=== PATIENT | female | born 1950 | race Caucasian/White ===

== ENCOUNTER 2020-05-13 07:30 | Outpatient (CLI) | payer MEDICARE, SELFPAY ==
[2020-05-13 07:40] VITALS: BMI 27.5
--- NOTE | 2020-05-13 07:58 | ECG_ITS ---
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 Interpretive Statements NAME OF STUDY: EXERCISE SESTAMIBI STRESS TEST INDICATION: Central Chest Pain Baseline blood pressure of 137/87 mm Hg, heart rate 74 beats per minute and oxygen saturation 96%. EKG showed normal sinus rhythm with possible old inferior wall myocardial infarction. Possible old anterolateral myocardial infarction. The patient exercised for 5 minutes on a standard John protocol. Patient attained a maximum heart rate of 150 beats per minute(99 % of the maximum predicted heart rate) with a blood pressure at the peak exercise of 193/87 mm Hg. The EKG at the peak exercise revealed no significant ST-T wave changes. Patient did not have any chest pain or any significant arrhythmis with the exercise. Patient developed intraprocedural shortness of breath that resolved by discharge. During the recovery phase, there were no new changes. Blood pressure at the end of the recovery phase was 172/90 mm Hg with a heart rate of 77 beats per minute and oxygen saturation 98%. CONCLUSION: 1. Normal EKG response to treadmill exercise. 2. No exercise-induced chest pain or cardiac arrhythmia. 3. Fair exercise tolerance, attained a maximum of 24.5 METs. 4. Baseline normal blood pressure with normal response to exercise. 5. Perfusion scan will be documented separately. Electronically Signed On 05-18-2020 12:10:56 CDT by Chapis Braxton M.D. [id number]
--- NOTE | 2020-05-13 07:59 | NMCV_ITS ---
NM shmuel perf SPECT r/s* [id number] Edwina Puentes Age: 69 Gender: F : 1950 Exam Date: 05/13/2020 08:27 Ordering Phys: Vidya Wallace MD Technologist: ANDRES Restrepo Exam Location: [facility] Indications: CENTRAL CHEST PAIN STRESS TEST Please see separate stress test report in [facility] for full findings IMAGE PROTOCOL Rest/Stress 1 Exercise Day Radiopharmaceutical Dose (mCi) Administration Site Administered by Rest: Tc-99m 10.9 IV ANDRES Dean Sestamibi Stress:Tc-99m 32.6 IV ANDRES Dean Sestamibi Rest: 13-May-2020 60 Discovery 630 Stress: 13-May-2020 30 Discovery 630 Radiopharmaceutical was injected at 88 % maximum heart rate. Images obtained in supine and prone position. SPECT RESULTS Technical Quality: Excellent Raw Data Analysis: Normal Image Corrections: No attenuation or motion correction applied Summed Stress Score: 9 Summed Rest Score: 8 Summed Difference Score: 1 PERFUSION FINDINGS Medium sized perfusion abnormality of mild to moderate severity of entire inferior, mid to apical inferolateral wall on rest and supine stress images. There is nearly homogeneous tracer uptake on prone stress images. This is suggestive of attenuation artifact. FUNCTIONAL RESULTS (calculated via Gated SPECT) Stress Image LV EF (%): 77 Stress EDV (mL):60 TID: 0.8 Stress ESV (mL):14 FUNCTIONAL FINDINGS: The left ventricle is normal in size. Transient Ischemia Dilatation of 0.8. There is normal left ventricular systolic function. The left ventricular ejection fraction is normal with a value of 77%. There is hyperdynamic left ventricular wall thickening. Normal end-diastolic and end-systolic volumes. IMPRESSIONS 1. Myocardial perfusion imaging is normal. Attenuation artifact noted in entire inferior and inferolateral sinclair. 2. Overall left ventricular systolic function is normal without regional wall motion abnormalities. 3. The left ventricular ejection fraction is normal with a value of 77%. 4. No coronary ischemia based on the study. Chapis Braxton MD (Electronically Signed) Final Date: 14 May 2020 17:32 S
--- NOTE | 2020-05-13 09:43 | SUR.PREOP ---
Patient reports no pain or discomfort prior to the start of the procedure.
[2020-05-13 09:56] VITALS: BP 173/82; PULSE 73
== END 2020-05-13 07:31 | disposition home or self-care (01) ==
LOC: RAD 07:34 → CDL 07:40
PROVIDERS: PCP Family Medicine; Visit Provider Family Medicine
DX: R07.89 Other chest pain (principal)
CPT/HCPCS: 78452; 93017; A9500

== ENCOUNTER 2021-04-22 08:42 | Outpatient (CLI) | payer MEDICARE, SELFPAY ==
--- NOTE | 2021-04-22 08:51 | MM_ITS ---
WS: [id number] BILATERAL SCREENING DIGITAL MAMMOGRAM WITH CAD HISTORY: SCREENING COMPARISON: 02/11/2019 and 05/23/2017 Bilateral CC and MLO views submitted. Computer aided detection analyzed. Breast composition: There are scattered areas of fibroglandular density. No suspicious masses, microc alcifications or architectural distortion. Benign calcifications in each breast. 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 MM/[place] [id number] IMPRESSION: BI-RADS: 2-Benign FOLLOW UP: 1 Year Follow-up
== END 2021-04-22 08:43 | disposition home or self-care (01) ==
LOC: RADSHAW 08:48
PROVIDERS: PCP Family Medicine; Visit Provider Family Medicine
DX: Z12.31 Encounter for screening mammogram for malignant neoplasm of breast (principal)
CPT/HCPCS: 77067

== ENCOUNTER 2022-04-25 14:59 | Outpatient (CLI) | payer MEDICARE, SELFPAY ==
--- NOTE | 2022-04-25 15:15 | MM_ITS ---
WS: [id number] VIEWS: MLO and CC views both breasts. 3D digital tomosynthesis is also included in this exam. Comparison made with prior exam of 05/13/2009, 08/01/2012, 05/23/2017, 02/11/2019, 04/22/2021.. Findings: There was no sign of mass, architectural distortion or suspicious calcification in either breast. Fa tty MM/[place] [id number] Impression: BI-RADS: 2-Benign FOLLOW-UP: 1 Year Follow-up This mammogram was also analyzed by the Computer Aided Detection System R2 Imag e Application Development Specialist.
== END 2022-04-25 15:00 | disposition home or self-care (01) ==
LOC: RADSHAW 15:01
PROVIDERS: PCP Family Medicine; Visit Provider Family Medicine
DX: Z12.31 Encounter for screening mammogram for malignant neoplasm of breast (principal)
CPT/HCPCS: 77063; 77067

== ENCOUNTER 2022-08-23 12:25 | Outpatient (CLI) | payer MEDICARE, SELFPAY ==
--- NOTE | 2022-08-23 12:47 | MR_ITS ---
WS: [id number] MRI RIGHT SHOULDER HISTORY: PAIN OF RIGHT SHOULDER REGION COMPARISON: 09/23/2010 TECHNIQUE: Multiplanar sequences of the shoulder joint are submitted. Mild AC joint hypertrophy. Small amount of fluid along the AC ligament. Small osteophytes encroach up on the supraspinatus myotendinous insertion. Moderate size osteophyte from the distal undersurface of the acromion. Moderate subacromial impingement. Small amount of fluid in the subacromial and subdelt oid bursa. No os acromion. Biceps tendon in good position. Increased signal through the distal supraspinatus tendon, signal is just distal to the subacromial os teophyte. No tear identified. There is moderate fraying along the articular and bursal surfaces of th e distal supraspinatus tendon with no retraction. No rotator cuff tear identified. No muscle atrophy or edema. Mild narrowing of the glenohumeral joint. No labral tear. MR/MR shoulder RT wo con* [id number] IMPRESSION: 1. 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 2. Moderate subacromial impingement by a moderate size osteophyte along the di stal undersurface of the acromion. 3. Moderate tendinopathy in the distal supraspinatus tendon with fraying along the bursal and articular surfaces. No rotator cuff tendon tear.
== END 2022-08-23 12:26 | disposition home or self-care (01) ==
PROVIDERS: PCP Family Medicine; Visit Provider Family Medicine
DX: M19.011 Primary osteoarthritis, right shoulder (principal); M25.811 Other specified joint disorders, right shoulder; M25.711 Osteophyte, right shoulder; M77.8 Other enthesopathies, not elsewhere classified
CPT/HCPCS: 73221

== ENCOUNTER → 2022-08-30 09:17 | Outpatient (BNVA) | payer MEDICARE, SELFPAY | PROVIDERS: PCP Family Medicine; Visit Provider Orthopaedic Surgery | DX: M75.01 Adhesive capsulitis of right shoulder (principal) | CPT/HCPCS: 99203 ==

== ENCOUNTER 2022-09-15 05:51 | Day surgery (SDC) | payer MEDICARE, SELFPAY ==
[2022-09-15] VITALS (9 sets, daily range): BP systolic 136–154; BP diastolic 72–90; PULSE 58–76; RESP 12–16; TEMP 36.5–37.3; O2SAT 92–98
[2022-09-15 06:14] LABS: Glucose Point of Care 117 mg/dL (70-110)
[2022-09-15] MEDS: acetaminophen 500 mg Tablet 1000 MG PO (06:21)
[2022-09-15] MEDS: sodium chloride 0.9% 1,000 ML 30 ML IV (06:21)
[2022-09-15] MEDS: CELEcoxib 200 mg Capsule 400 MG PO (06:21)
--- NOTE | 2022-09-15 06:48 | W.PM.OPSUD ---
Surgery/Procedure H&P Update DATE OF PROCEDURE: September 15, 2022 DATE H&P PERFORMED: 08/30/22 H&P UPDATE INFORMATION: I have reviewed H&P completed within last 30 days PREOP DIAGNOSIS: Adhesive capsulitis right shoulder PLANNED PROCEDURE: Operation Date: 09/15/22 07:00 Proposed Procedures p right shoulder manipulation M75.1,(Right) - Cornelio Clemente MD
[2022-09-15] MEDS: dexamethasone 4 mg/mL INJ INJECTION (07:14)
--- NOTE | 2022-09-15 07:20 | PM.OP ---
Operative Report Date of procedure: September 15, 2022 Pre-op diagnosis: Preop Diagnosis Adhesive capsulitis right shoulder Post-op diagnosis: same Procedure done: Right shoulder manipulation under anesthesia, injection subacromial space Pathology: none sent Anesthesia: General Estimated blood loss (mL): 0 Findings: Preoperatively the right shoulder could be flexed to 100 degrees and externally rotated 20 degrees. She can be abducted 70 degrees. Condition: stable Disposition: PACU Procedure: After Edwina was her range of motion of both shoulders was measured with right shoulder range of motion noted above. The right shoulder was then brought into flexion after 100 degrees of flexion crepitations were felt as adhesions were broken down and the shoulder was gently brought into 160 degrees of flexion. The arm was then abducted 90 degrees in that position excellently rotated 90 degrees and internally rotated 70 degrees. The elbow was then brought to the side and arm externally rotated 60 degrees. These motions were compared to the contralateral side and noted to be identical. The right shoulder was then prepped posteriorly with ChloraPrep and the subacromial space infiltrated with 1 cc of dexamethasone and 4 cc half percent plain Marcaine. She was taken to recovery room in stable condition
--- NOTE | 2022-09-15 07:34 | P.PCN_ITS ---
PACU note Narrative: VSS, Good respiratory effort, report to VELVET STEAMER Exam: awake
--- NOTE | 2022-09-15 07:34 | PM.PACU ---
PACU note Narrative: VSS, Good respiratory effort, report to SCREEN CLEANER Exam: awake
--- NOTE | 2022-09-15 08:20 | ANES.PREANE2 ---
Pre-Anesthetic Assessment Height/Weight: Height 1.73 m Weight 81.647 kg Temp Pulse Resp BP Pulse Ox O2 Del Method O2 Flow Rate 97.8 F 71 15 141/87 92 7 09/15/22 08:08 09/15/22 08:08 09/15/22 08:08 09/15/22 08:08 09/15/22 08:08 09/15/22 08:08 09/15/22 07:45 Preop Diagnosis: Adhesive capsulitis right shoulder Operation Date: 09/15/22 07:00 Proposed Procedures p right shoulder manipulation M75.1,(Right) - Cornelio Clemente MD Familial anesthetic complications: none Was Beta Nilo taken within 24 hours: N/A Was Clonidine taken within 24 hours: N/A Last intake: Intake Last Liquid Date 09/14/22 Last Liquid Time 19:30 Last Solid Date 09/14/22 Last Solid Time 19:30 Social No alcohol and No tobacco Exam alert, oriented x 3, clear to auscultation bilaterally and regular rate & rhythm Airway Submandibular: within normal limits Cervical ROM: within normal limits Mallampati: Class II CV/HEM Hypertension Metabolic Diabetes Mellitus and Thyroid Disease Anesthetic Plan ASA status: 3 Anesthesia: General and Regional (specify below) (Right interscalene nerve blk) Medications/Allergies Home Medications Medication Instructions Recorded Confirmed Last Taken Type dulaglutide 1.5 mg/0.5 mL 1.5 mg SUBCUT DIRECTED 08/30/22 09/15/22 09/12/22 History subcutaneous pen injector (Trulicity) metformin 1,000 mg tablet 1,000 mg PO BID 08/30/22 09/15/22 09/14/22 History levothyroxine 75 mcg tablet 75 mcg PO DAILY 09/14/22 09/15/22 09/14/22 History ondansetron 4 mg disintegrating 4 mg PO PRN PRN Nausea 09/14/22 09/15/22 Unknown History tablet sitagliptin 100 mg tablet (Januvia) 100 mg PO DAILY 09/14/22 09/15/22 09/14/22 History hydrocodone 5 mg-acetaminophen 325 1 tab PO Q4H #30 tabs 09/15/22 Unknown Rx mg tablet lisinopril 5 mg tablet 5 mg PO DAILY 09/15/22 09/15/22 09/14/22 History Allergies Allergy/AdvReac Type Severity Reaction Status Date / Time No Known Allergies Allergy Verified 08/30/22 09:51 Current Medications Generic Name Dose Route Start Last Admin Trade Name Roddy PRN Reason Stop Dose Admin Sodium Chloride 1,000 mls @ 30 mls/hr 09/15/22 06:15 09/15/22 06:21 Sodium Chloride 0.9% IV 09/16/22 06:14 30 mls/hr .Q24H JUMA Administration PFSH Anesthesia Family History Other CAD (coronary artery disease) Social History Smoking and tobacco status: never smoked Data Anesthesia Cardiac Studies: Sestamibi Stress Test (Cardiology) 05/13/20 Anesthesia Procedures Nerve Block Nerve Block 1: Main Anesthesia: general anesthesia Time Out Performed: Yes Consent: requested by attending/covering physician, from patient, risks and benefits reviewed and patient agrees to proceed Nerve block location: interscalene (right) Anesthesia monitors applied: pulse oximetry, EKG, BP cuff and oxygen Nerve block position: semi sitting Anesthetic Used: ropivicaine 0.5% Amount of anesthesia used (mL): 30 Ultrasound used to: recognize landmarks and visualize and ID brachial plexus Nerve Stimulator Used?: No Interscalene/Femoral BLK: 2 stimuplex 22 g needle used for position and inplane approach Injection: neg aspiration of heme Patient Tolerated Procedure: well Complications: none
--- NOTE | 2022-09-15 15:34 | ANE.PACU2 ---
Inpatient post-anesthesia follow up: Airway intact: Yes Vital signs: Temperature 97.8 F Pulse Rate 71 Respiratory Rate 15 Blood Pressure 141/87 Pulse Oximetry 92 Oxygen Delivery Me thod Room Air Oxygen Flow Rate 7 Fraction of Inspir ed Oxygen Hydration adequate: Yes Nausea and vomiting: No Pain level: 1 Mental status: Baseline
== END 2022-09-15 08:30 | disposition home or self-care (01) ==
PROVIDERS: PCP Family Medicine; Visit Provider Orthopaedic Surgery
PROC: (CPT 20610; principal; 2022-09-15 07:00)
DX: M75.01 Adhesive capsulitis of right shoulder (principal)
CPT/HCPCS: 20610; 23700; 36416; 82962; J1100; J2704; J2795; J3010; J3490; J7030

== ENCOUNTER 2022-09-16 06:00 | Outpatient (RCR) | payer MEDICARE, SELFPAY | END 2022-09-28 16:24 | disposition home or self-care (01) | LOC: SPT 06:00 | PROVIDERS: PCP Family Medicine; Visit Provider Orthopaedic Surgery | DX: M25.611 Stiffness of right shoulder, not elsewhere classified (principal) | CPT/HCPCS: 97110; 97161 ==

== ENCOUNTER → 2022-09-28 07:56 | Outpatient (BNVA) | payer MEDICARE, SELFPAY | PROVIDERS: PCP Family Medicine; Visit Provider Nurse Practitioner Family | DX: M75.01 Adhesive capsulitis of right shoulder (principal) | CPT/HCPCS: 99213 ==

== ENCOUNTER → 2022-10-18 08:42 | Outpatient (BNVA) | payer MEDICARE, SELFPAY | PROVIDERS: PCP Family Medicine; Visit Provider Orthopaedic Surgery | DX: M75.01 Adhesive capsulitis of right shoulder (principal) | CPT/HCPCS: 99024 ==

== ENCOUNTER 2023-12-20 12:19 | Emergency (ER) | payer MEDICARE, MEDICAID, SELFPAY ==
[2023-12-20 12:21] VITALS: BP 174/91; PULSE 65; RESP 14; TEMP 36.3; O2SAT 100
--- NOTE | 2023-12-20 12:52 | XR_ITS ---
WS: [id number] Right shoulder, 3 views, 12/20/2023 Clinical Data: fall Comparison: Right shoulder, 06/01/2022 Findings: There is an impacted comminuted fracture of the right humeral head and neck. The humeral head is not dislocated from the glenoid fossa. The AC joint is intact. The adjacent right clavicle, right scapula and right ribs are normal. Impression: Impacted comminuted fracture of the right humeral head and neck.
--- NOTE | 2023-12-20 12:52 | XR_ITS ---
WS: [id number] Right arm and humerus, 2 views, 12/20/2023 Clinical Data: fall Comparison: Right shoulder, 12/20/2023 Findings: There is an impacted comminuted fracture of the right humeral head and neck. The humeral shaft is no rmal. The soft tissues are normal. Impression: Impacted comminuted fracture of right humeral head and neck.
[2023-12-20 13:02] VITALS: RESP 21
--- NOTE | 2023-12-20 13:03 | W.ED.EXTPRO ---
Documented by User: GRANT Qureshi 12/20/23 13:40 HPI - Extremity Problem General: Chief complaint: Extremity Injury, Upper Stated complaint: fall, right arm pain Time Seen by Provider: 12/20/23 12:58 History of Present Illness: 73-year-old female comes in for injury to the right upper arm. Patient tripped and fell this morning over a rug landing and injuring her right upper arm. Patient appears in moderate to severe pain. Pulses are intact to the distal part of the extremity. Sensation is intact to the distal part of the extremity. Patient has a history of diabetes mellitus. Review of Systems General: Reports: 10 or more systems reviewed and unremarkable except in HPI and below Musc: Reports: extremity pain PFS ED PFSH: Family History Other CAD (coronary artery disease) Social History Smoking and tobacco/nicotine status: never used tobacco/nicotine Physical Exam Const: COMMON NORMALS: alert HENMT: COMMON NORMALS: normocephalic HEAD & SCALP: normocephalic Neck/C-Spine: COMMON NORMALS: no meningeal signs Resp: COMMON NORMALS: normal respiratory effort and clear to auscultation bilaterally AUSCULTATION: clear to auscultation bilaterally Cardio: COMMON NORMALS: regular rate and regular rhythm RATE: regular rate RHYTHM: regular rhythm GI: COMMON NORMALS: Soft to palpation PALPATION: Yes Soft to palpation and No Tenderness to palpation present (GI) : COMMON NORMALS: Yes no CVA tenderness BLADDER/KIDNEY EXAM: Yes no CVA tenderness Back/Pelvis: COMMON NORMALS: no CVA tenderness Extremity: RIGHT UPPER EXTREMITY: Yes shoulder joint (Guarded to touch, proximal swelling, no obvious deformity) and Yes upper arm (Proximal tenderness) Neuro: SENSORIUM/ORIENTATION: Yes alert MENINGEAL SIGNS: Yes no meningeal signs Skin: COMMON NORMALS: turgor normal GENERAL SKIN EXAM: turgor normal Course Vital Signs: Vital signs: Vital Signs Temperature 97.4 F L 12/20/23 12:21 Pulse Rate 72 12/20/23 13:41 Respiratory Rate 21 H 12/20/23 13:10 Blood Pressure 126/72 12/20/23 13:41 Pulse Oximetry 96 12/20/23 13:41 Oxygen Delivery Me thod Room Air 12/20/23 12:21 MDM - Extremity (Nontraumatic) Medical Decision Making Patient comes in today for evaluation of injury to the right shoulder. On exam patient has pain to the proximal humerus. Patient has some mild swelling noted. Patient is very guarded with any movement. Distal pulses and sensation are intact. No other injuries are noted. Chest wall is nontender. Abdomen soft nontender. No visible injuries to the scalp. No tenderness along the spine. Patient takes no anticoagulants or antiplatelet agents. Differential diagnosis includes dislocation, fracture, contusion. X-ray notes impacted fracture to the proximal humerus. There is comminuted abnormality to the humeral head. Reviewed exam with patient with recommendations for sling use and follow-up. Reviewed with Dr. Kothari who agreed to plan. All radiology interpretation(s) finalized by discharge Discharge Plan Discharge Patient Disposition: Home Clinical Impression: Fracture of humerus Qualifiers: Encounter type: initial encounter Humerus Location: proximal Fracture type: closed Fracture morphology: unspecified fracture morphology Laterality: right Qualified Code(s): S42.201A - Unspecified fracture of upper end of right humerus, initial encounter for closed fracture Condition: Stable Prescriptions: Continued hydrocodone-acetaminophen 5-325 mg tablet 1 tab PO Q4H Qty: 30 0RF No Action Trulicity 1.5 mg/0.5 mL pen injector 1.5 mg SUBCUT DIRECTED Rx Instructions: on mondays metformin 1,000 mg tablet 1,000 mg PO BID levothyroxine 75 mcg tablet 75 mcg PO DAILY ondansetron 4 mg tablet,disintegrating 4 mg PO PRN PRN (Reason: Nausea) Januvia 100 mg tablet 100 mg PO DAILY lisinopril 5 mg Tablet 5 mg PO DAILY Discharge Orders: Discharge ED (Routine); Ordered 12/20/23 Ordered By: Mitul Amador Referrals: Vidya Wallace MD [Primary Care Provider] - Discharge Diet: Usual diet Discharge Activity: Increase activity as tolerated Patient Instructions: Arm Fracture in Adults (ED), Opioid Safety, Pain Management Activity Restrictions/Additional Instructions: Follow-up with orthopedics in 1 week. Use sling for protection of fracture. Use medication as needed for pain. Drink plenty of water and fluids. You may need to use a stool softener if using hydrocodone routinely. You can use Tylenol or ibuprofen to help control pain. Use ice or heat for further pain relief. Return to ED for new concerns. Coding Level of Care Code ED Learning Operations Specialist for Kateryna Borja Documented by User: Piyush Kothari DO 12/22/23 06:58 HPI - Extremity Problem General: Chief complaint: Extremity Injury, Upper Stated complaint: fall, right arm pain Time Seen by Provider: 12/20/23 12:58 [facility] ED PFSH: Family History Other CAD (coronary artery disease) Social History Smoking and tobacco/nicotine status: never used tobacco/nicotine Course Vital Signs: Vital signs: Vital Signs Temperature 97.4 F L 12/20/23 12:21 Pulse Rate 72 12/20/23 13:41 Respiratory Rate 21 H 12/20/23 13:10 Blood Pressure 126/72 12/20/23 13:41 Pulse Oximetry 96 12/20/23 13:41 Oxygen Delivery Me thod Room Air 12/20/23 12:21 MDM - Extremity (Nontraumatic) Medical Decision Making Patient comes in today for evaluation of injury to the right shoulder. On exam patient has pain to the proximal humerus. Patient has some mild swelling noted. Patient is very guarded with any movement. Distal pulses and sensation are intact. No other injuries are noted. Chest wall is nontender. Abdomen soft nontender. No visible injuries to the scalp. No tenderness along the spine. Patient takes no anticoagulants or antiplatelet agents. Differential diagnosis includes dislocation, fracture, contusion. X-ray notes impacted fracture to the proximal humerus. There is comminuted abnormality to the humeral head. Reviewed exam with patient with recommendations for sling use and follow-up. Reviewed with Dr. Kothari who agreed to plan. Chart reviewed and patient discussed with midlevel. Agree with assessment and plan. Discharge Plan Discharge Patient Disposition: Home Clinical Impression: Fracture of humerus Qualifiers: Encounter type: initial encounter Humerus Location: proximal Fracture type: closed Fracture morphology: unspecified fracture morphology Laterality: right Qualified Code(s): S42.201A - Unspecified fracture of upper end of right humerus, initial encounter for closed fracture Condition: Stable Prescriptions: Continued hydrocodone-acetaminophen 5-325 mg tablet 1 tab PO Q4H Qty: 30 0RF No Action Trulicity 1.5 mg/0.5 mL pen injector 1.5 mg SUBCUT DIRECTED Rx Instructions: on mondays metformin 1,000 mg tablet 1,000 mg PO BID levothyroxine 75 mcg tablet 75 mcg PO DAILY ondansetron 4 mg tablet,disintegrating 4 mg PO PRN PRN (Reason: Nausea) Januvia 100 mg tablet 100 mg PO DAILY lisinopril 5 mg Tablet 5 mg PO DAILY Discharge Orders: Discharge ED (Routine); Ordered 12/20/23 Ordered By: Mitul Amador Referrals: Vidya Wallace MD [Primary Care Provider] - Discharge Diet: Usual diet Discharge Activity: Increase activity as tolerated Patient Instructions: Arm Fracture in Adults (ED), Opioid Safety, Pain Management Activity Restrictions/Additional Instructions: Follow-up with orthopedics in 1 week. Use sling for protection of fracture. Use medication as needed for pain. Drink plenty of water and fluids. You may need to use a stool softener if using hydrocodone routinely. You can use Tylenol or ibuprofen to help control pain. Use ice or heat for further pain relief. Return to ED for new concerns. Coding Level of Care Code ED Learning Operations Specialist for Kateryna Borja
[2023-12-20 13:10] VITALS: RESP 21; O2SAT 97
[2023-12-20] MEDS: morphine 4 mg/mL SDV 1 mL IM (13:10)
[2023-12-20 13:41] VITALS: BP 126/72; PULSE 72; O2SAT 96
--- NOTE | 2023-12-22 05:30 | DCPLANNER ---
Message sent to Ortho for a follow up on a proximal humeral fracture.
== END 2023-12-20 13:42 | disposition home or self-care (01) ==
PROVIDERS: Emergency Provider Nurse Practitioner Family; PCP Family Medicine
DX: S42.201A Unspecified fracture of upper end of right humerus, initial encounter for closed fracture (principal); Z79.85 Long-term (current) use of injectable non-insulin antidiabetic drugs; Z79.84 Long term (current) use of oral hypoglycemic drugs; E11.9 Type 2 diabetes mellitus without complications; W18.09XA Striking against other object with subsequent fall, initial encounter
CPT/HCPCS: 73030; 73060; 96372; 99284; J2270

== ENCOUNTER → 2023-12-25 09:09 | Outpatient (BNVA) | payer MEDICARE, MEDICAID, SELFPAY | PROVIDERS: PCP Family Medicine; Referring Provider Nurse Practitioner Family; Visit Provider Specialist | DX: S42.224A 2-part nondisplaced fracture of surgical neck of right humerus, initial encounter for closed fracture; W10.8XXA Fall (on) (from) other stairs and steps, initial encounter; Z46.89 Encounter for fitting and adjustment of other specified devices; S42.201D Unspecified fracture of upper end of right humerus, subsequent encounter for fracture with routine healing; S42.291D Other displaced fracture of upper end of right humerus, subsequent encounter for fracture with routine healing; X58.XXXD Exposure to other specified factors, subsequent encounter | CPT/HCPCS: 23600; 73030; 97760; 99204; L3670 ==

== ENCOUNTER 2023-12-25 11:17 | Outpatient (CLI) | payer MEDICARE, MEDICAID, SELFPAY | END 2023-12-25 11:18 | disposition home or self-care (01) | LOC: SPT 11:19 | PROVIDERS: PCP Family Medicine; Visit Provider Specialist | DX: Z46.89 Encounter for fitting and adjustment of other specified devices (principal); S42.201D Unspecified fracture of upper end of right humerus, subsequent encounter for fracture with routine healing; S42.291D Other displaced fracture of upper end of right humerus, subsequent encounter for fracture with routine healing; X58.XXXD Exposure to other specified factors, subsequent encounter | CPT/HCPCS: 23600; 24530; 97760; 99204; L3670 ==

== ENCOUNTER → 2024-01-22 09:47 | Outpatient (BNVA) | payer MEDICARE, SELFPAY | PROVIDERS: PCP Family Medicine; Visit Provider Specialist | DX: S42.224D 2-part nondisplaced fracture of surgical neck of right humerus, subsequent encounter for fracture with routine healing; W10.8XXD Fall (on) (from) other stairs and steps, subsequent encounter | CPT/HCPCS: 73030; 99024 ==

== ENCOUNTER → 2024-02-19 09:24 | Outpatient (BNVA) | payer MEDICARE, SELFPAY | PROVIDERS: PCP Family Medicine; Visit Provider Specialist | DX: S42.224D 2-part nondisplaced fracture of surgical neck of right humerus, subsequent encounter for fracture with routine healing (principal); X58.XXXD Exposure to other specified factors, subsequent encounter | CPT/HCPCS: 73030; 99024 ==

== ENCOUNTER → 2024-03-27 10:09 | Outpatient (BNVA) | payer MEDICARE, SELFPAY | PROVIDERS: PCP Family Medicine; Visit Provider Specialist | DX: S42.224D 2-part nondisplaced fracture of surgical neck of right humerus, subsequent encounter for fracture with routine healing (principal); X58.XXXD Exposure to other specified factors, subsequent encounter | CPT/HCPCS: 73030; 99213 ==

== ENCOUNTER 2024-07-04 09:16 | Outpatient (CLI) | payer MEDICARE, SELFPAY ==
--- NOTE | 2024-07-04 09:18 | MM_ITS ---
WS: [id number] VIEWS: MLO and CC views both breasts. 3D digital tomosynthesis is also included in this exam. Comparison made with prior exam of 08/01/2012, 05/23/2017, 02/11/2019, 04/22/2021, 04/25/2022,. Findings: There was no sign of mass, architectural distortion or suspicious calcification in either breast. The re are scattered areas of fibroglandular density MM/[place] [id number] Impression: BI-RADS: 2-Benign finding. FOLLOW-UP: 1 Year Follow-up This mammogram was also analyzed by the Computer Aided Detection System R2 Imag e Medicaid Collection Specialist.
== END 2024-07-04 09:17 | disposition home or self-care (01) ==
LOC: RAD 09:16
PROVIDERS: PCP Family Medicine; Visit Provider Family Medicine
DX: Z12.31 Encounter for screening mammogram for malignant neoplasm of breast (principal); R92.323 Mammographic fibroglandular density, bilateral breasts
CPT/HCPCS: 77063; 77067